=== PATIENT | female | born 1995 | race Caucasian/White ===

== ENCOUNTER 2023-08-17 12:50 | Emergency (ER) | payer BC, SELFPAY ==
[2023-08-17] VITALS (7 sets, daily range): BP systolic 117–143; BP diastolic 87–98; PULSE 80–100
--- NOTE | 2023-08-17 13:15 | ED.GENMED ---
History of Present Illness
<Amira Ibrahim PA-C - Last Filed: 08/17/23 18:38>
General
Chief Complaint: Allergic Reaction
Source: patient
Exam Limitations: none
Time Seen by Provider: 08/17/23 13:10
Nursing documentation reviewed up to this point in time: agreed with
Travel History
Have you had any contact with someone who has COVID-19?: No
Do you have any symptoms of coronavirus? Fever > 100 degrees, chills, cough, shortness of breath, sore throat, loss of taste or smell, muscle aches, or headache?: No
History of Present Illness
History of Present Illness:
This is a 28 y/o female with a PMH of anxiety presenting emergency department today with concerns of tremors, tachycardia, and feelings of being scattered for the past few weeks. Patient states that she was recently discharged from a outpatient
partial program for her anxiety and OCD. Patient states that since she has been home, her Anafranil dose has been increased from 25 mg to eventually 125 mg. Patient states that since that increase, she has been experiencing a variety of symptoms
including numbness and tingling in her legs, resting tremors, tachycardia, and feeling like she is often forgetful and feeling like she is getting things that she used to care about before. Patient follows as an outpatient with Dr. Mckee. Patient
is a follow-up and tomorrow. Patient denies shortness of breath, chest pain. Patient [place] any fevers or chills, abdominal pain. Patient also takes clonazepam daily and Seroquel daily as well. She also notes that her Seroquel dose was increased
recently.
Review of Systems
<Amira Ibrahim PA-C - Last Filed: 08/17/23 18:38>
Review of Systems
All Other Systems: ROS reviewed and negative except as documented in HPI and ROS
Phy Exam
<Amira Ibrahim PA-C - Last Filed: 08/17/23 18:38>
Physical Exam
Physical Exam:
General: Patient is well appearing and in no acute distress; non-toxic. Patient is well kept.
Skin: Warm and dry, no rashes or lesions
Head: Normocephalic, atraumatic
Eyes: Sclera non-icteric. EOMs intact. PERRLA.
Cardiac: Patient is tachycardic otherwise regular rhythm, no murmurs.
Peripheral Vascular: No lower extremity swelling or edema, no erythema
Pulm: Normal respiratory effort, no wheezes, rales, or rhonchi
Abdomen: No abdominal tenderness to palpation
Musculoskeletal: 5 out of 5 strength in bilateral upper extremities and lower extremities. No rigidity. No resting tremor.
Neuro: CN II-XII intact, no focal neurologic deficits. No dysmetria.
Psychiatric: Anxious affect. Disorganized thought process. No suicidal homicidal ideations.
Course
<Amira Ibrahim PA-C - Last Filed: 08/17/23 18:38>
Orders/Labs/Results
Orders:
Orders
08/17/23 13:40
Electrocardiogram (*1) Urgent
Reason for Study: Tachycardia
EKG- Treatment ONCE
08/17/23 13:54
0.9% Sodium Chloride 500 ml [Nss] 500 ml IV BOLUS
08/17/23 14:11
Complete Blood Count/With Diff Urgent
Comprehensive Metabolic Panel Urgent
08/17/23 14:47
Lorazepam [Ativan] 1 mg IV NOW STA
08/17/23 15:39
Orthostatic VS- Treatment ONCE
Abnormal Lab Results
08/17/23
14:11
MCV 80.6 L fL
(81.0-99.0)
Creatinine 0.5 L mg/dL
(0.6-1.0)
08/17/23 14:11
08/17/23 14:11
Vital Signs
Initial and Last Documented VS:
Initial Vital Signs
Temp Pulse Resp BP Pulse Ox
99.3 F 101 20 139/95 100
08/17/23 12:54 08/17/23 12:54 08/17/23 12:54 08/17/23 12:54 08/17/23 12:54
Last Documented Vital Signs
Temp Pulse Resp BP Pulse Ox
99.3 F 81 14 143/89 100
08/17/23 12:54 08/17/23 16:30 08/17/23 16:30 08/17/23 16:00 08/17/23 16:30
<Saad Griffith, DO - Last Filed: 08/17/23 14:18>
Orders/Labs/Results
Orders:
Orders
08/17/23 13:40
Electrocardiogram (*1) Urgent
Reason for Study: Tachycardia
EKG- Treatment ONCE
08/17/23 13:54
0.9% Sodium Chloride 500 ml [Nss] 500 ml IV BOLUS
08/17/23 14:11
Complete Blood Count/With Diff Urgent
Comprehensive Metabolic Panel Urgent
08/17/23 14:47
Lorazepam [Ativan] 1 mg IV NOW STA
08/17/23 15:39
Orthostatic VS- Treatment ONCE
Abnormal Lab Results
08/17/23
14:11
MCV 80.6 L fL
(81.0-99.0)
Creatinine 0.5 L mg/dL
(0.6-1.0)
08/17/23 14:11
08/17/23 14:11
Vital Signs
Initial and Last Documented VS:
Initial Vital Signs
Temp Pulse Resp BP Pulse Ox
99.3 F 101 20 139/95 100
08/17/23 12:54 08/17/23 12:54 08/17/23 12:54 08/17/23 12:54 08/17/23 12:54
Last Documented Vital Signs
Temp Pulse Resp BP Pulse Ox
99.3 F 81 14 143/89 100
08/17/23 12:54 08/17/23 16:30 08/17/23 16:30 08/17/23 16:00 08/17/23 16:30
<Amira Ibrahim PA-C - Last Filed: 08/17/23 18:38>
MDM/Problems Addressed
Differential Diagnosis Includes:
Differentials include tricyclic antidepressant side effect, orthostatic hypotension, dysrhythmia, anxiety,
MDM/Problems Addressed:
multiple symptoms--tachycardia, dry mouth, mental fog, tremors
Chronic conditions affecting care:
anxiety, OCD
Acute Exacerbation and/or Progression of Chronic Illness:
anxiety
<Amira Ibrahim PA-C - Last Filed: 08/17/23 18:38>
*Pulse Oximetry
Patient hypoxic: no
*Critical Care Note
Total Time (30-74mins, 75-104mins- exclusive of procedures): Not Applicable
Data Reviewed
Review of Other/Old Records Reveals: Records (No previous ER physician documentation to review) and Discharge Summary (no discharge summaries to review)
Source: patient
Further Testing Considered But Not Given:
Consider chest x-ray however patient has no cough or cold-like symptoms, shortness of breath, chest pain
<Amira Ibrahim PA-C - Last Filed: 08/17/23 18:38>
Patient Management
Escalation/DeEscalation of care consider admission/obs:
This is a 28 y/o female with a PMH of anxiety presenting emergency department today with concerns of tremors, tachycardia, and feelings of being scattered for the past few weeks. Patient states that she was recently discharged from a outpatient
partial program for her anxiety and OCD. Patient states that she started a new medication, tricyclic antidepressant a month ago and a few weeks ago the dose was increased. Patient since had tachycardia, dry mouth, mental fog, tremors. Suspect her
current symptoms are related to medication side effects, considering patient has unremarkable lab work, is afebrile, and her heart rate came down while here in emergency department and with some fluids. She has an unremarkable physical exam and EKG.
No concern for serotonin syndrome or neuroleptic malignant syndrome at this time. Patient stable for discharge, advised patient to continue monitor her symptoms and return for any new or worsening symptoms, patient does have a follow-up with her
psychiatrist tomorrow.
<Amira Ibrahim PA-C - Last Filed: 08/17/23 18:38>
Update Note
Update Note:
3:17 pm--
ED Attending Note
<Amira Ibrahim PA-C - Last Filed: 08/17/23 18:38>
-
Portions of this chart may have been created with voice recognition software.� Occasional wrong word or��sound alike� substitutions may have occurred due to the inherent limitations of voice recognition software.
<Saad Griffith DO - Last Filed: 08/17/23 14:18>
ED Attending Note
Patient seen and examined by attending physician: Yes
I performed the substantive portion of visit, reviewed & personally made and approve the management plan that is documented in note by myself or KEVIN.: Yes
ED Attending Note:
I have seen and evaluated the patient with a [id number] encounter. I have spoken to the advance practicer provider and involved in the medical history, the physical exam, medical decision making.
Evaluation and management service: agree unless noted differently below.
Results interpretation: agree unless noted differently below.
Focused HPI: 28-year-old female presenting with multiple complaints. She complains of [id number], tremor, fogginess and increased anxiety. She is working with her psychiatrist and dealing with her anxiety/depression/OCD. She recently had
her TCA medicine increased and was told she could increase her Seroquel as well. Patient states that she feels like she is going crazy and the medicine is not working.
Physical exam: Very anxious appearing. Tremulous. Heart regular rate and rhythm. No focal deficits
Medical Decision Making: We discussed this could be a side effect of her TCA medications. Will give dose of IV Ativan. Discussed 2 options with patient. We discussed this is either mental health related or a side effect of her medication.
Discussed going back down on her original TCA dose and discussing her symptoms with her psychiatrist at the appointment tomorrow. Will give dose of IV Ativan obtain basic blood work. Patient acknowledges and understands and agrees with my
assessment. Mother at bedside does as well.
Discharge Plan
Departure
Patient Disposition: Home (Routine Discharge)
Date of Disposition: 08/17/23
Time of Disposition: 16:26
Patient with high blood pressure during this ER visit?: Yes
Condition: Good
Discharge Problem:
Medication side effect
Instructions: Adverse Drug Reactions, Adult (DC), BLOOD PRESSURE
Referrals:
Beth Lujan MD [Family Provider] -
Activity Restrictions/Additional Instructions:
Please follow up with your psychiatrist tomorrow.
Please return to the emergency department should you experience dilated pupils, blurred vision, seizures, chest pain, shortness of breath, or any other concerning signs or symptoms.
Interventions
Interventions:
*Risk Screen - Suicide Last Done: 08/17/23 12:59
*General Assessment Last Done: 08/17/23 12:59
*Neglect/Abuse Screening Last Done: 08/17/23 12:59
*ED COVID-19 Vaccine History Last Done: 08/17/23 12:59
*Nursing Disposition Last Done: 08/17/23 16:43
ED- Cardiac Assessment Last Done: 08/17/23 14:13
ED- Pulmonary Assessment Last Done: 08/17/23 14:13
ED-Skin Assessment Last Done: 08/17/23 14:13
Discharge Date and Time
Discharge Date/Time: 08/17/23 16:43
Print Language: ANDORRAN
[2023-08-17] MEDS: NSS 500 IV (14:11)
[2023-08-17 14:21] LABS: % Eosinophils 1.8 % (0-6); % Immature Granulocytes 0.4 % (0-0.5); % Monocytes 6.7 % (1.7-9.3); % Neutrophils 55.1 % (42.2-75.2); Absolute Basophils 0.1 10^3/uL (0-0.2); Absolute Eosinophils 0.2 10^3/uL (0-0.7); Absolute Lymphocytes 2.9 10^3/uL (1.2-3.4); Absolute Monocytes 0.6 10^3/uL (0.1-0.6); Absolute Neutrophils 4.5 10^3/uL (1.4-6.5); Hematocrit 38.2 % (37.0-47.0); Hemoglobin 13.7 g/dL (12.0-16.0); Mean Corp Hgb Conc. 35.9 g/dL (33.0-37.0); Mean Corpuscular Hgb 28.9 pg (27.0-31.0); Mean Corpuscular Volume 80.6 fL (81.0-99.0); Mean Platelet Volume 10.1 fL (7.4-10.4); Nucleated Red Blood Cells % 0 %; Platelet Count 344 10^3/uL (130-400); Red Blood Cell Count 4.74 10^6/uL (4.20-5.40); Red Cell Dist. Width 12.5 % (11.5-14.5); White Blood Cell Count 8.2 10^3/uL (4.8-10.8)
[2023-08-17 14:41] LABS: ALT (SGPT) 17 U/L (0-35); AST (SGOT) 19 U/L (14-36); Albumin 4.4 g/dl (3.5-5.0); Alkaline Phosphatase 59 U/L (38-126); Blood Urea Nitrogen 14 mg/dl (7-17); Calcium 9.6 mg/dl (8.4-10.2); Carbon Dioxide 29 mmol/L (22-30); Chloride 99 mmol/L (98-107); Glucose 89 mg/dl (70-99); Potassium 3.7 mmol/L (3.5-5.1); Sodium 137 mmol/L (135-145); Total Bilirubin 0.5 mg/dl (0.2-1.3); Total Protein 7.6 g/dl (6.3-8.2); eGFR > 60.00
[2023-08-17] MEDS: ATIVAN 1 MG IV (15:03)
== END 2023-08-17 16:43 | disposition home or self-care (01) ==
LOC: EMR 12:50
PROVIDERS: Physician Assistant; EMERGENCY PHYSICIAN Student in an Organized Health Care Education/Training Program; FAMILY PHYSICIAN Internal Medicine
DX: R20.0 Anesthesia of skin (principal); R00.0 Tachycardia, unspecified; R25.1 Tremor, unspecified; T43.015A Adverse effect of tricyclic antidepressants, initial encounter; Y92.9 Unspecified place or not applicable; F41.9 Anxiety disorder, unspecified; F42.9 Obsessive-compulsive disorder, unspecified; Z79.899 Other long term (current) drug therapy
CPT/HCPCS: 99283; 96374; 96361; 80053; 85025; 93005

== ENCOUNTER 2023-09-05 10:53 | Emergency (ER) | payer BC, SELFPAY ==
[2023-09-05 11:00] VITALS: BP 128/88
[2023-09-05 11:46] LABS: Amphetamines Negative (Negative)
--- NOTE | 2023-09-05 11:46 | ED.GENMED ---
History of Present Illness
General
Chief Complaint: Overdose Intentional
Source: patient and police
Exam Limitations: none
Time Seen by Provider: 09/05/23 10:59
Travel History
Have you had any contact with someone who has COVID-19?: Unable to Answer
Do you have any symptoms of coronavirus? Fever > 100 degrees, chills, cough, shortness of breath, sore throat, loss of taste or smell, muscle aches, or headache?: Unable to Answer
History of Present Illness
History of Present Illness:
28-year-old female apparently took about 10 Klonopin tablets. She is not totally sure why she did it. Unsure if she did a suicide attempt. However did admit that she does not want to live like this. Admits to significant anxiety and stress.
This is been ongoing for a while. Multiple psychiatric medications without improvement. Not sleeping. Not eating. Denies other ingestion at this time
Past History
Past History
ED Past Medical History: Psychiatric
Review of Systems
Review of Systems
All Other Systems: Not applicable
Constitutional: Denies fever
Respiratory: Reports no symptoms
Cardiac: Reports no symptoms
ABD/GI: Reports no symptoms
Phy Exam
Physical Exam
Physical Exam:
GENERAL: Alert and oriented. Anxious. Crying. Hyperventilating.
EYE: Orbits normal.
NECK: Supple, no significant adenopathy.
ENT: Pharynx without erythema
CARDIAC: Mildly tachycardic and regular no murmur
LUNGS: Hyperventilating
ABDOMEN: Soft, without focal tenderness or distention
NEUROLOGICAL: Alert and oriented , grossly non-focal
SKIN: Warm and dry, no rash or lesion, no discoloration, skin intact.
MUSCULOSKELETAL: No edema,no deformity.Good color
PSYCH: Crying. Anxious.
Course
Orders/Labs/Results
Orders:
Orders
09/05/23 11:11
Electrocardiogram (*1) Stat
Reason for Study: Other
Other Reason for Exam: overdose
CT Head W/o Iv Contrast Urgent
Comment:
Reason For Exam: Change in mental status
Crisis Consult Urgent
Reason for Consult: Overdose/anxiety/depression
Cardiac Monitoring- Treatment ONCE
EKG- Treatment ONCE
IV Insert/Care/Rem.- Treatment PRN
0.9% Sodium Chloride 1000 ml [Nss] 1,000 ml IV BOLUS
Test Result ONCE
Pulse Ox/cont/shift [RESP] Stat
Quantity: 1
09/05/23 11:27
Complete Blood Count/With Diff Urgent
Urine Drug Abuse Screen Urgent
Date Specimen was Collected: 09/05/23
Time Specimen was Collected: 11:25
09/05/23 13:30
Acetaminophen Urgent
Alcohol Urgent
Comprehensive Metabolic Panel Urgent
HCG, Serum Qualitative Screen Urgent
Salicylate Urgent
Serotonin [S] Urgent
TSH Reflex To Free T4 Urgent
Abnormal Lab Results
09/05/23 09/05/23
11:27 13:30
Hct 36.7 L %
(37.0-47.0)
MPV 10.5 H fL
(7.4-10.4)
Absolute Monos (auto) 0.7 H 10^3/uL
(0.1-0.6)
Salicylates < 1.0 L mg/dl
(2.0-20.0)
Acetaminophen < 10 L ug/ml
(10-30)
09/05/23 11:27
09/05/23 13:30
Vital Signs
Initial and Last Documented VS:
Initial Vital Signs
Pulse BP Pulse Ox
125 128/88 99
09/05/23 11:00 09/05/23 11:00 09/05/23 11:00
Last Documented Vital Signs
Pulse BP Pulse Ox
125 128/88 99
09/05/23 11:00 09/05/23 11:00 09/05/23 11:00
MDM/Problems Addressed
Differential Diagnosis Includes:
Multiple issues. #1 making sure she is medically stable. This includes that the overdose issue. This is being worked up. Also considering medical issue masquerading as a psychiatric issue. Clinically doubt this but labs thyroid and head CT will
be done. Finally she clearly needs psychiatric help. She apparently has a petition a 302. Crisis was contacted.
*Radiology
Radiology exam reviewed: radiology read reviewed (Negative head CT)
*Pulse Oximetry
Patient hypoxic: no
*EKG
Interpreted by ED Provider?: Yes
Interpretation: normal
Comparison EKG: no changes
Heart Rate: 92
Rate: normal
Rhythm: sinus
Dunnell: normal axis
Interval: normal interval
QRS Pattern: normal QRS
Ischemia: no ischemia
*[place] Interpretation
Rate: normal
Interpretation: normal
Heart Rate: 90
Rhythm: sinus
*Critical Care Note
Total Time (30-74mins, 75-104mins- exclusive of procedures): 35
Update Note
Update Note:
Multiple rechecks. Patient is remained stable. Nothing to support serotonin syndrome however family very interested in a serotonin level. Will reluctantly order this. Medically cleared. Currently going in is a 201 but there is a 302 backup
ED Attending Note
-
Portions of this chart may have been created with voice recognition software.� Occasional wrong word or��sound alike� substitutions may have occurred due to the inherent limitations of voice recognition software.
Discharge Plan
Departure
Patient Disposition: Psych Facility
Date of Disposition: 09/05/23
Time of Disposition: 15:38
Discharge Problem:
Klonopin overdose, Anxiety/depression
Referrals:
Beth Lujan MD [Family Provider] -
Interventions
Interventions:
ED- Fall Risk Assessment Last Done: 09/05/23 15:14
ED- Cardiac Assessment Last Done: 09/05/23 15:14
ED- Neurological Assessment Last Done: 09/05/23 15:14
ED-Psychological Assessment Last Done: 09/05/23 15:14
ED- Pulmonary Assessment Last Done: 09/05/23 15:14
Discharge Date and Time
Print Language: WALLISIAN
[2023-09-05 11:47] LABS: Barbiturates Negative (Negative); Benzodiazepines Negative (Negative); Buprenorphine Negative (Negative); Cocaine Negative (Negative); Marijuana Negative (Negative); Methadone Negative (Negative); Methamphetamines Negative (Negative); Opiates Negative (Negative); Phencyclidine Negative (Negative); Tricyclic Antidepressants Negative (Negative)
[2023-09-05 13:02] LABS: % Basophils 0.6 % (0-2); % Eosinophils 1.2 % (0-6); % Immature Granulocytes 0.3 % (0-0.5); % Lymphocytes 30.7 % (20.5-51.1); % Monocytes 6.1 % (1.7-9.3); % Neutrophils 61.1 % (42.2-75.2); Absolute Basophils 0.1 10^3/uL (0-0.2); Absolute Eosinophils 0.1 10^3/uL (0-0.7); Absolute Lymphocytes 3.3 10^3/uL (1.2-3.4); Absolute Monocytes 0.7 10^3/uL (0.1-0.6); Absolute Neutrophils 6.5 10^3/uL (1.4-6.5); Hematocrit 36.7 % (37.0-47.0); Mean Corp Hgb Conc. 35.4 g/dL (33.0-37.0); Mean Corpuscular Hgb 28.7 pg (27.0-31.0); Mean Platelet Volume 10.5 fL (7.4-10.4); Nucleated Red Blood Cells % 0 %; Platelet Count 376 10^3/uL (130-400); Red Blood Cell Count 4.53 10^6/uL (4.20-5.40); Red Cell Dist. Width 12.9 % (11.5-14.5); White Blood Cell Count 10.7 10^3/uL (4.8-10.8)
[2023-09-05] MEDS: NSS 1000 IV (13:33)
[2023-09-05 14:34] LABS: HCG, Serum Qualitative Screen Negative
[2023-09-05 14:38] LABS: ALT (SGPT) 19 U/L (0-35); AST (SGOT) 23 U/L (14-36); Acetaminophen < 10 ug/ml (10-30); Albumin 4.2 g/dl (3.5-5.0); Alkaline Phosphatase 59 U/L (38-126); Blood Urea Nitrogen 13 mg/dl (7-17); Calcium 9.6 mg/dl (8.4-10.2); Carbon Dioxide 29 mmol/L (22-30); Chloride 104 mmol/L (98-107); Glucose 90 mg/dl (70-99); Potassium 3.5 mmol/L (3.5-5.1); Salicylate < 1.0 mg/dl (2.0-20.0); Sodium 140 mmol/L (135-145); Total Bilirubin 0.6 mg/dl (0.2-1.3); Total Protein 7.2 g/dl (6.3-8.2); eGFR > 60.00
[2023-09-05 14:39] LABS: Alcohol None Detected
[2023-09-05 15:04] VITALS: BMI 25.7
[2023-09-05 15:07] LABS: TSH Reflex To Free T4 0.51 uIU/ml (0.47-4.68)
[2023-09-05 16:43] VITALS: BP 126/88
== END 2023-09-05 17:15 ==
LOC: EMR 10:53
PROVIDERS: EMERGENCY PHYSICIAN Emergency Medicine; FAMILY PHYSICIAN Internal Medicine
DX: T42.4X1A Poisoning by benzodiazepines, accidental (unintentional), initial encounter (principal); X58.XXXA Exposure to other specified factors, initial encounter; F41.9 Anxiety disorder, unspecified; F32.A Depression, unspecified
CPT/HCPCS: 99284; 96360; 70450; 80053; 80143; 80179; 80306; 82077; 84260; 84443; 84703; 85025; 93005

== ENCOUNTER 2023-09-18 18:32 | Emergency (ER) | payer BC, SELFPAY ==
[2023-09-18 18:42] VITALS: BP 118/83; BMI 26.1
[2023-09-18 18:53] LABS: Glucose - Point of Care 194 mg/dl (70-99)
[2023-09-18 19:00] VITALS: BP 125/84
[2023-09-18 19:14] LABS: % Basophils 0.5 % (0-2); % Eosinophils 0.2 % (0-6); % Immature Granulocytes 0.5 % (0-0.5); % Lymphocytes 16.5 % (20.5-51.1); % Monocytes 7.5 % (1.7-9.3); % Neutrophils 74.8 % (42.2-75.2); Absolute Basophils 0.1 10^3/uL (0-0.2); Absolute Immature Granulocytes 0.1 10^3/uL (0-0.05); Absolute Lymphocytes 2.2 10^3/uL (1.2-3.4); Hematocrit 35.4 % (37.0-47.0); Hemoglobin 12.6 g/dL (12.0-16.0); Mean Corp Hgb Conc. 35.6 g/dL (33.0-37.0); Mean Corpuscular Hgb 28.5 pg (27.0-31.0); Mean Corpuscular Volume 80.1 fL (81.0-99.0); Mean Platelet Volume 10.5 fL (7.4-10.4); Nucleated Red Blood Cells % 0 %; Platelet Count 397 10^3/uL (130-400); Red Blood Cell Count 4.42 10^6/uL (4.20-5.40); Red Cell Dist. Width 12.5 % (11.5-14.5); White Blood Cell Count 13.3 10^3/uL (4.8-10.8)
[2023-09-18 19:27] LABS: ALT (SGPT) 34 U/L (0-35); AST (SGOT) 35 U/L (14-36); Albumin 4.6 g/dl (3.5-5.0); Alkaline Phosphatase 60 U/L (38-126); Blood Urea Nitrogen 19 mg/dl (7-17); Calcium 9.8 mg/dl (8.4-10.2); Carbon Dioxide 23 mmol/L (22-30); Chloride 102 mmol/L (98-107); Estimated Creatinine Clearance 119 ml/min; Glucose 193 mg/dl (70-99); Potassium 3.7 mmol/L (3.5-5.1); Sodium 137 mmol/L (135-145); Total Bilirubin 0.6 mg/dl (0.2-1.3); Total Protein 7.2 g/dl (6.3-8.2); eGFR > 60.00
--- NOTE | 2023-09-18 19:46 | ED.GENMED ---
History of Present Illness
<PANDA Juan - Last Filed: 09/18/23 21:56>
General
Chief Complaint: Seizure
Source: patient, significant other (Boyfriend) and family (Mother)
Exam Limitations: none
Time Seen by Provider: 09/18/23 19:18
History of Present Illness
History of Present Illness:
This is a 28 year old female that comes in with by ambulance with possible seizure. Mom states that she was stairing and her arms were stiff and her jaw clenched. States that her legs were shaking. Sate that she was diaphoretic and she was laid down
on the ground. State that she was not incont. States that she kept asking in the ambulance who's wedding were that at. States that it took time for her to come around. States that she was a little nauseated and she had a headache. Denies any fever,
chills, chest pain, SOB, abd pain, vomiting, diarrhea, dizziness, urinary burning.
Past History
<PANDA Juan - Last Filed: 09/18/23 21:56>
Past History
ED Past Medical History: Psychiatric (OCD and Anxiety); Negative Asthma, HTN, Hypercholesterolemia or Renal failure
ED Past Surgical History: None
Social History
Tobacco: Non-smoker
Alcohol: Occasional
Personal: Single
Living: with family
Review of Systems
<PANDA Juan - Last Filed: 09/18/23 21:56>
Review of Systems
All Other Systems: ROS reviewed and negative except as documented in HPI and ROS
Constitutional: Reports no symptoms; Denies fever or chills
EENT: Reports no symptoms
Respiratory: Reports no symptoms; Denies cough or trouble breathing
Cardiac: Reports no symptoms; Denies chest pain
ABD/GI: Reports nausea; Denies abdominal pain, vomiting or diarrhea
: Reports no symptoms; Denies dysuria, frequency or urgency
Musculoskeletal: Reports no symptoms
Skin: Reports no symptoms
Neurological: Reports headache; Denies dizzy
Psychiatric: Reports anxiety
Phy Exam
<PANDA Juan - Last Filed: 09/18/23 21:56>
General Physical Exam
General Presentation: no apparent distress
General age: appears stated age
General Skin: warm and dry
General Habitus: normal
General Mental: alert
General Hydration: appears well hydrated
ENT Exam
ENT Exam: TM's normal, pharynx normal, neck supple and other (Negative for any bite corral on tongue, Jaw slightly sore when she opens her mouth)
Eye Exam
Eye Exam: EOMI
Cardiovascular Exam
Cardiovascular Exam: regular rate/rhythm, no edema, no murmur and normal peripheral pulses
Pulmonary Exam
Pulmonary Exam: lungs clear, no respiratory distress, no rales, chest non tender, no crackles, no rhonchi, no wheezing and no cough
Gastrointestinal Exam
Gastrointestinal Exam: normal bowel sounds, non tender, soft, no organomegaly, no pulsatile mass and non distended
Musculoskeletal Exam
Musculoskeletal Exam: full ROM and no edema
Skin Exam
Skin Exam: normal color, warm/dry, no rash and no petechia
Psychiatric Exam
Psychiatric Exam: anxious
Course
<PANDA Juan - Last Filed: 09/18/23 21:56>
Orders/Labs/Results
Orders:
Orders
09/18/23 18:47
Electrocardiogram (*1) Urgent
Reason for Study: Other
Other Reason for Exam: seizure
09/18/23 18:48
EKG- Treatment ONCE
09/18/23 18:51
Complete Blood Count/With Diff Urgent
Comprehensive Metabolic Panel Urgent
HCG, Serum Qualitative Screen Urgent
Comment: ADD ON
09/18/23 19:33
Add On- LAB Urgent
Tests Added?: hcg qual
09/18/23 21:06
Ketorolac [Toradol] 30 mg .ROUTE .STK-MED ONE
09/18/23 21:08
Ketorolac [Toradol] 30 mg IV NOW STA
09/18/23 21:10
0.9% Sodium Chloride 1000 ml [Nss] 1,000 ml IV BOLUS
Abnormal Lab Results
09/18/23 09/18/23
18:51 18:52
WBC 13.3 H 10^3/uL
(4.8-10.8)
Hct 35.4 L %
(37.0-47.0)
MCV 80.1 L fL
(81.0-99.0)
MPV 10.5 H fL
(7.4-10.4)
Abs Immat Gran (auto) 0.1 H 10^3/uL
(0-0.05)
Absolute Neuts (auto) 10.0 H 10^3/uL
(1.4-6.5)
Absolute Monos (auto) 1.0 H 10^3/uL
(0.1-0.6)
Lymphocytes % 16.5 L %
(20.5-51.1)
BUN 19 H mg/dl
(7-17)
Glucose 193 H mg/dl
(70-99)
POC Glucose 194 H mg/dl
(70-99)
09/18/23 18:51
09/18/23 18:51
Leukocytosis, Dehydration. Glucose nonfasting.
Vital Signs
Initial and Last Documented VS:
Initial Vital Signs
Temp Pulse Resp BP Pulse Ox
97.9 F 93 19 118/83 98
09/18/23 18:42 09/18/23 18:42 09/18/23 18:42 09/18/23 18:42 09/18/23 18:42
Last Documented Vital Signs
Temp Pulse Resp BP Pulse Ox
97.9 F 96 16 131/80 98
09/18/23 18:42 09/18/23 21:30 09/18/23 21:30 09/18/23 21:00 09/18/23 21:30
<Mark Spencer Marinelli, DO - Last Filed: 09/18/23 21:34>
Orders/Labs/Results
Orders:
Orders
09/18/23 18:47
Electrocardiogram (*1) Urgent
Reason for Study: Other
Other Reason for Exam: seizure
09/18/23 18:48
EKG- Treatment ONCE
09/18/23 18:51
Complete Blood Count/With Diff Urgent
Comprehensive Metabolic Panel Urgent
HCG, Serum Qualitative Screen Urgent
Comment: ADD ON
09/18/23 19:33
Add On- LAB Urgent
Tests Added?: hcg qual
09/18/23 21:06
Ketorolac [Toradol] 30 mg .ROUTE .STK-MED ONE
09/18/23 21:08
Ketorolac [Toradol] 30 mg IV NOW STA
09/18/23 21:10
0.9% Sodium Chloride 1000 ml [Nss] 1,000 ml IV BOLUS
Abnormal Lab Results
09/18/23 09/18/23
18:51 18:52
WBC 13.3 H 10^3/uL
(4.8-10.8)
Hct 35.4 L %
(37.0-47.0)
MCV 80.1 L fL
(81.0-99.0)
MPV 10.5 H fL
(7.4-10.4)
Abs Immat Gran (auto) 0.1 H 10^3/uL
(0-0.05)
Absolute Neuts (auto) 10.0 H 10^3/uL
(1.4-6.5)
Absolute Monos (auto) 1.0 H 10^3/uL
(0.1-0.6)
Lymphocytes % 16.5 L %
(20.5-51.1)
BUN 19 H mg/dl
(7-17)
Glucose 193 H mg/dl
(70-99)
POC Glucose 194 H mg/dl
(70-99)
09/18/23 18:51
09/18/23 18:51
Vital Signs
Initial and Last Documented VS:
Initial Vital Signs
Temp Pulse Resp BP Pulse Ox
97.9 F 93 19 118/83 98
09/18/23 18:42 09/18/23 18:42 09/18/23 18:42 09/18/23 18:42 09/18/23 18:42
Last Documented Vital Signs
Temp Pulse Resp BP Pulse Ox
97.9 F 96 16 131/80 98
09/18/23 18:42 09/18/23 21:30 09/18/23 21:30 09/18/23 21:00 09/18/23 21:30
<PANDA Juan - Last Filed: 09/18/23 21:56>
MDM/Problems Addressed
Differential Diagnosis Includes:
Seizure Vs Syncope. Medication reactions
MDM/Problems Addressed:
This is a 28 year old female that is brought in by ambulance with c/o possible seizure vs Syncope. Mom states that this all started a year ago as patient has such bad anxiety. States that she has been on Klonopin for 10 years. States that one year
ago her anxiety was so bad that she was crying and very anxious. State that she did out patient therapy and they took her off her Lexapro after trying this as they felt it was not working. States that she was put on Clomipramine but again she did
not feel well with this. States that she was taking Seroquel and Klonopin. States that this did not seem to be working. States that on September 04 she was not motivated and wouldn't go out so she took a handful of Klonopin about 15 tabs. States that
she was in [facility] and Discharged on the State that they had put her on Hydroxyzine 50mg on Thursday at [facility] and on Thursday or Thursday they started Pristec and this was upped to 75mg. States that she was weaned off the Klonopin and her
last dose was on September 09 .25mg. Today patient was at a wedding and she had taken Valium 2.5mg last night and then 5mg this morning. Patient then had a seizure of Syncopal episode at the wedding and was brought here.
Mom feels that right know the patient is more relaxed then she expected her to be. Explained that since she has no history of seizures and this is questionable would have patient follow up with the Neurologist and her Psychiatrist and they need to
figure out her mediation. Offered patient to speak with Crisis but she refused at states that in patient made her more Anxious . Will check labs, give IV fluids and then discharge home.
Patient was also seen by DR. Marinelli. He is in agreement that this is most likely medication related. Will have patient go back up on her Prestec to the low dose that she was taking and follow up with the Psychiatrist. Will also give patient
the name of Neurologist for further evaluation. Return with any concerns.
Chronic conditions affecting care: Psychiatric illness
Acute Exacerbation and/or Progression of Chronic Illness: Psychiatric illness
<PANDA Juan - Last Filed: 09/18/23 21:56>
*Pulse Oximetry
Patient hypoxic: no
*EKG
Interpreted by ED Provider?: Yes
Heart Rate: 96
Rate: normal
Rhythm: sinus
[place]: normal axis
Interval: normal interval
QRS Pattern: normal QRS
Ischemia: no ischemia
*[employer] Interpretation
Rate: normal
Heart Rate: 88
*Critical Care Note
Total Time (30-74mins, 75-104mins- exclusive of procedures): Not Applicable
ED Attending Note
<PANDA Juan - Last Filed: 09/18/23 21:56>
-
Portions of this chart may have been created with voice recognition software.� Occasional wrong word or��sound alike� substitutions may have occurred due to the inherent limitations of voice recognition software.
<Mark Marinelli DO - Last Filed: 09/18/23 21:34>
ED Attending Note
Patient seen and examined by attending physician: Yes
I performed the substantive portion of visit, reviewed & personally made and approve the management plan that is documented in note by myself or KEVIN.: Yes
I performed a history and physical exam of patient and discussed management with resident, I reviewed resident's note and agree with documented findings and plan of care.: Yes
ED Attending Note:
I evaluated the patient at bedside. The patient does have 3 beat clonus most notable to the right lower extremity and also has some akathisia. However family at bedside are also saying that 'this is the best she appeared' in the recent past. She
did recently resume benzos over this weekend as prescribed by another psychiatrist. She is going to be talking to her main psychiatrist on Thursday. Suspect medication related symptoms.
Discharge Plan
Departure
Patient Disposition: Home (Routine Discharge)
Date of Disposition: 09/18/23
Time of Disposition: 21:50
Patient with high blood pressure during this ER visit?: Yes
Condition: Good
Covid-19: Not Applicable
Discharge Problem:
Possible seizure activity
Instructions: Seizures, Adult (DC), BLOOD PRESSURE
Referrals:
Anthony Alicia MD [Active] - Call in 1-3 days for appt
UNKNOWN - PT DOES,NOT KNOW [Unknown Provider] -
Activity Restrictions/Additional Instructions:
As discussed, this may have been a seizure related to your medication changes. You have been seen by the ER physician and it has been suggested that you go up to the lowest dose of Pristiq that you were taking. You may also use the Valium that you
were given over the weekend as you were directed. Please follow up with the Psychiatrist on Thursday for further evaluation. You have been given the name of a Neurologist for further evaluation. IF YOU HAVE ANY OTHER CONCERNS PLEASE RETURN TO THE
EMERGENCY ROOM.
Interventions
Interventions:
*Risk Screen - Suicide Last Done: 09/18/23 18:42
*General Assessment Last Done: 09/18/23 18:42
*Neglect/Abuse Screening Last Done: 09/18/23 18:42
*ED COVID-19 Vaccine History Last Done: 09/18/23 18:42
ED- Neurological Assessment Last Done: 09/18/23 18:48
Discharge Date and Time
Print Language: MALTESE
[2023-09-18 19:50] LABS: HCG, Serum Qualitative Screen Negative
[2023-09-18 20:00] VITALS: BP 128/76
[2023-09-18 21:00] VITALS: BP 131/80
[2023-09-18] MEDS: TORADOL 30 MG IV (21:09)
[2023-09-18] MEDS: NSS 1000 IV (21:10)
[2023-09-18 22:00] VITALS: BP 135/81
== END 2023-09-18 22:00 | disposition home or self-care (01) ==
LOC: EMR 18:32
PROVIDERS: EMERGENCY PHYSICIAN Emergency Medicine; FAMILY PHYSICIAN Internal Medicine
DX: G40.909 Epilepsy, unspecified, not intractable, without status epilepticus (principal); F42.9 Obsessive-compulsive disorder, unspecified; F41.9 Anxiety disorder, unspecified
CPT/HCPCS: 99283; 96374; 96361; 80053; 82962; 84703; 85025; 93005